=== PATIENT | male | born 1955 | race American Indian/Alaskan Native ===

== ENCOUNTER 2018-10-24 17:11 | Inpatient (IN) | payer SELFPAY ==
--- NOTE | 2018-10-24 23:57 | Event Note ---
Date: 10/24/[address] Sharad weller Orders reviewed
[2018-10-25 05:12] LABS: Basophils # (Auto) 0.1 K/mm3 (0.0-0.1); Basophils % (Auto) 0.7 % (0.0-1.8); Eosinophils # (Auto) 0.1 K/mm3 (0.0-0.4); Eosinophils % (Auto) 1.6 % (0.0-4.3); Hematocrit 43.3 % (35.5-45.6); Hemoglobin 14.3 gm/dl (11.8-15.2); Lymphocytes # (Auto) 3.7 K/mm3 (1.2-5.4); Lymphocytes % (Auto) 44.2 % (13.4-35.0); Mean Corpuscular HGB Conc 33 % (32-34); Mean Corpuscular Volume 96 fl (84-94); Monocytes # (Auto) 0.7 K/mm3 (0.0-0.8); Monocytes % (Auto) 7.9 % (0.0-7.3); Platelet Count 366 K/mm3 (140-440); Red Blood Count 4.49 M/mm3 (3.65-5.03); Red Cell Distribution Width 13.8 % (13.2-15.2)
[2018-10-25 05:32] LABS: BUN/Creatinine Ratio 27; Blood Urea Nitrogen 24 mg/dL (9-20); Hemolysis Index 14
[2018-10-25] MEDS: LOVENOX SUB-Q SCH (08:59)
[2018-10-25] MEDS: HCTZ PO SCH (08:59)
[2018-10-25] MEDS: ASPIRIN PO SCH (08:59)
[2018-10-25] MEDS: HABITROL TD SCH (09:00)
--- NOTE | 2018-10-25 11:16 | History and Physical Report ---
History of Present Illness Date: 10/25/18 Date of admission: 10/24/18 20:10 Chief Complaint: CVA History of present illness: 63 yo male presented to ED on 10/12/2018 after a day of worsening right sided weakness and slurred speech which became acutely worse 1.5 hrs prior to presentation. 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 CTA did not show significant stenosis or occlusion. Hypertension was difficult to control and medications were increased for better control. After he was medically stabilized he was transferred for further rehab. Left hand dominant. Reduced awareness of deficits and slightly impulsive. Cautioned against attempt ing to do things on his own without calling for assistance while he was here. Observed walking in hallway with therapy with RLE laurel wrapped for support and lesvia walker. He still has significant issues with balance, right sided hemiparesis and insight. All available medical records, therapy notes, vitals and labs were reviewed. Past History Past Medical History: hypertension, hyperlipidemia Past Surgical History: No surgical history Social history: Lives alone, smoking (EtOH Use), full code Family history: hypertension Medications and Allergies Allergies Allergy/AdvReac Type Severity Reaction Status Date / Time No Known Allergies Allergy Unverified 10/24/18 17:14 Active Meds: Active Medications Amlodipine Besylate (Norvasc) 10 mg PO QDAY [facility] Aspirin (Aspirin) 325 mg PO QDAY [facility] Last Admin: 10/25/18 08:59 Dose: 325 mg Documented by: Atorvastatin Calcium (Lipitor) 40 mg PO QHS [facility] Enoxaparin Sodium (Lovenox) 40 mg SUB-Q QDAY [facility] Last Admin: 10/25/18 08:59 Dose: 40 mg Documented by: Hydrochlorothiazide (Hctz) 25 mg PO QDAY [facility] Last Admin: 10/25/18 08:59 Dose: 25 mg Documented by: Lisinopril (Zestril) 40 mg PO QDAY [facility] Nicotine (Habitrol) 14 mg TD QDAY [facility] Last Admin: 10/25/18 09:00 Dose: Not Given Documented by: Review of Systems All systems: negative (All systems normal except as noted) Constitutional: fatigue, weakness Ears, nose, mouth and throat: no dysphagia Cardiovascular: no chest pain, no rapid/irregular heart beat, no shortness of breath Respiratory: no cough Gastrointestinal: no nausea, no vomiting, no constipation, no early satiety Musculoskeletal: gait dysfunction Integumentary: no rash, no lesions, no unusual bruising Neurological: weakness, lack of coordination, balance difficulties, gait dysfunction, no aphasia Psychiatric: no irritability Exam - Exam Narrative exam: MUSCULOSKELETAL SPECIALTY EXAM Constitutional: Well developed, well nourished, appropriately groomed, LHD Lymphatic: No appreciable abnormalities palpable in neck EENT: Visual benavides full to confrontation. EOMI. Oropharynx clear. Hearing intact to finger rustle Respiratory: Clear to ascultation bilaterally, no increased work of breathing. Cardiovascular Regular Rate/ Rhythm, no swelling edema or tenderness in all 4 extremities. Pulses palpable in all 4 extremities. All 4 extremities warm. GI : + bowel sounds, soft, NTTP, nondistended INTEGUMENTARY Normal in all 4 extremities. Musuloskeletal BUE and BLE normal without defect, crepitus, sublux, effusion, or TTP. RUE and RLE 3 to 4-/5, ADF/APF 0/5. Decreased aROM, good pROM, normal tone. LUE and LLE 5/5, good ROM with normal tone. NEURO: Slight Right facial droop, otherwise CN 2-12 grossly intact. Sensation intact in all extremities without extinction. Reflexes 3+ on right and 2+ on left at biceps, brachioradialis and patella. Clonus at right ankle. Coordination intact on left, decreased on right. No tremor noted. No aphasia or dysarthria. Naming and repetition intact. POSTURE and GAIT: Slight lean to right, ambulating with lesvia walker, laurel wrap and assistance. Balance reasonable PSYCH: Alert, orientated x3, affect appears normal. Insight appears slightly impaired, with some increased impulsivity. - Constitutional Vitals: Vital Signs - 12hr 10/25/18 10/25/18 10/25/18 00:25 00:27 07:19 Temperature 36.6 C 36.9 C Pulse Rate 71 69 70 Respiratory 20 20 Rate Blood Pressure 117/90 126/78 O2 Sat by Pulse 100 98 93 Oximetry - Labs CBC & Chem 7: 10/25/18 04:35 10/25/18 04:35 Labs: Laboratory Results - last 72 hr 10/25/18 10/25/18 04:35 04:35 WBC 8.4 RBC 4.49 Hgb 14.3 Hct 43.3 MCV 96 H MCH 32 MCHC 33 RDW 13.8 Plt Count 366 Lymph % (Auto) 44.2 H [place] % (Auto) 7.9 H Eos % (Auto) 1.6 Baso % (Auto) 0.7 Lymph # 3.7 [place] # 0.7 Eos # 0.1 Baso # 0.1 Seg Neutrophils % 45.6 Seg Neutrophils # 3.8 Sodium 140 Potassium 4.1 Chloride 103.1 Carbon Dioxide 26 Anion Gap 15 BUN 24 H Creatinine 0.9 Estimated GFR > 60 BUN/Creatinine Ratio 27 Glucose 96 Calcium 9.0 Assessment and Plan Assessment and plan: Patient was assessed and evaluated for Acute Inpatient Rehab Unit. Due to the patients above-mentioned medical complexity, along with decreased functional mobility and self care, this patient continues to require and be appropriate for a comprehensive, multidisciplinary [id number] rehabilitation program. These needs cannot be met in an outpatient or other less intensive setting. The patient would continue to benefit from skilled therapy intervention for at least 3 hours per day, five days a week, with techniques specific to the needs of the patient to improve function, activities of daily living, and reintegration into the community. The patient continues to require: -- OT to improve ROM, self-care, and learn use of adaptive equipment -- PT to improve strength and balance, functional transfers, and ambulation -- MARINE SERVICES TECHNICIAN to evaluate and treat cognitive decline and dysphagia -- 24 hour RN to ensure and prevent skin breakdown, promote progressive independence while ensuring safety, ensure education regarding medications, and incorporation of the rehabilitation at the bedside -- 24 hour [employer] Obie[employer] Developer to coordinate this interdisciplinary program, and to manage/prevent complications as a result of the patients medical comorbidities. -Plan of care by day 4 -Weekly team conferences With such a program, there is a reasonable certainty that the goals individualized for this patient can be achieved within the specified length of stay. I69.353 Right non-dom hemiparesis: Monitor for neuro decline. Continue secondary stroke prevention. Discussed recovery and secondary stroke prevention. Monitor for post-stroke depression and s/s of shoulder-hand syndrome. 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 Z73.6 ADL dysfunction: OT will work on improving ability to perform ADLs (including assistive devices) to increase independence and decrease caregiver burden and improve functional transfers and mobility training. R26.2 Difficulty walking: PT will work on gait training and proper use of assistive devices and advance as appropriate to use of stairs and outside ambulation on uneven surfaces. R26.81 Unsteadiness on feet: PT will work on improving static and dynamic sitting and standing balance as well as proper use of assistive devices to decrease risk of falls. R26.89 Abnormality of gait: PT will work to improve safety and efficiency of gait through neuromotor training and gait training along with instruction on proper use of assistive devices. M62.81 Muscle weakness: PT & OT will work on strengthening exercises to improve functional strength including mixture of closed and open kinetic chain exercises. R53.81 Debility: PT & OT will work on improving overall functional status to improve participation with ADLs, mobility and social involvement. R53.83 Fatigue: PT & OT will work on improving endurance through aerobic exercises and therapeutic activity while monitoring patients tolerance for activity and vital signs as needed. I10 Hypertension:Monitor BP and adjust medications as needed for normotension F17.210 Tobacco Addiction: Continue nicotine patch. Discussed smoking cessation with patient E78.5 Hyperlipidemia: continue statin DVT ppx: on lovenox Pain: Continue physical modalities in therapy and pain medications as needed to achieve functional pain control. Sleep: Monitor and address as needed. Bowel: Monitor and address as needed. Appetite: Monitor and address as needed. Discharge planning: Pending therapy progress and care plan meeting. Will continue discussion with therapy team, SW, patient and family. Restrictions/ Precautions: Falls, aspiration WB status: FWB Functional Hx: ADLs: Independent and working Cognition: Independent Mobility: independent Barriers to Discharge: Decreased mobility and ability to perform self care, right sided weakness, balance deficits, decreased insight Estimated Length of Stay: 7 -10 days Discharge Destination: Home with family POST ADMISSION PHYSICIAN EVALUATION I have examined the patient and find that his functional status, medical condition and appropriateness for IRF admission are essentially unchanged from those described in the preadmission screening. Will monitor for worsening neurological condition, complications due to hypertension and electrolyte abnormalities. Will attempt to avoid occurrence of these issues or treat them if they present themselves.
[2018-10-25] MEDS: NORVASC PO SCH (12:46)
[2018-10-25] MEDS: ZESTRIL PO SCH (12:46)
[2018-10-25] MEDS ORDERED: DULCOLAX PR PRN (13:42)
[2018-10-25] MEDS ORDERED: TYLENOL PO PRN (13:42)
[2018-10-25] MEDS ORDERED: ZOFRAN ODT PO PRN (14:47)
[2018-10-25] MEDS ORDERED: DESYREL PO PRN (14:47)
[2018-10-26] MEDS: ZESTRIL PO SCH (08:36)
[2018-10-26] MEDS: COLACE PO SCH (09:13)
[2018-10-26] MEDS: ASPIRIN PO SCH (09:13)
[2018-10-26] MEDS: LOVENOX SUB-Q SCH (09:14)
[2018-10-26] MEDS: HCTZ PO SCH (09:14)
[2018-10-26] MEDS: HABITROL TD SCH (09:14)
[2018-10-26] MEDS: NORVASC PO SCH (12:35)
[2018-10-27] MEDS: HABITROL TD SCH (09:48)
[2018-10-27] MEDS: NORVASC PO SCH (09:52)
[2018-10-27] MEDS: HCTZ PO SCH (09:53)
[2018-10-27] MEDS: ZESTRIL PO SCH (09:53)
[2018-10-27] MEDS: ASPIRIN PO SCH (09:53)
[2018-10-27] MEDS: LOVENOX SUB-Q SCH (09:54)
[2018-10-27] MEDS: COLACE PO SCH (09:57)
--- NOTE | 2018-10-27 23:16 | IRU Plan of Care ---
Interdisciplinary Plan of Care - IPOC IRU INTERDISCIPLINARY PLAN: [facility] Inpatient Rehab Unit Plan of Care IRU Interdisciplinary Care Plan Start: 10/24/18 20:58 Freq: Admission then PRN Status: Active Protocol: Document 10/27/18 09:11 TH (Rec: 10/27/18 09:19 TH [id number]) Interdisciplinary Problem List Interdisciplinary Problem List Interdisciplinary Problem List Impaired Eating/Swallowing Query Text:Answers will Trigger Problems Impaired Bathing/Grooming and Outcomes on Worklist. Impaired Dressing Impaired Mobility Impaired Transfers Impaired Toileting Impaired Problem Solving Impaired Memory Knowledge Deficits Discharge Concerns Impaired Safety Medications Education Impaired Cardiovascular System IRU Interdisciplinary Care Plan Therapy Services Therapy Services Will Include: Physical Therapy Query Text:Patient will be seen for a Occupational Therapy minimum of 3 hours of daily therapy 5 Speech Therapy out of 7 days a week. Therapy intensity may be adjusted within a 7 consecutive day period to effectively serve the individual needs of the patient. Treatment Frequency/Intensity/Duration Treatment Frequency 5 days per week Treatment Intensity 3 hours per day Treatment Duration 7-10 days Problem Area: Eating/Swallowing Eating/Swallowing Outcomes Eating/Swallowing Interventions Problem Area: Bathing/Grooming Bathing/Grooming Outcomes Improve [place] w/ Grooming Improve [place] w/ Bathing Bathing/Grooming Interventions ADL Training Use of Assistive Devices Therapeutic Exercise Therapeutic Activity Neuromuscular Re-Education Balance Work Activity Tolerance Work Patient/Caregiver Education Problem Area: Dressing Dressing Outcomes Improve [place] w/ UB Dressing Improve [place] w/ LB Dressing Dressing Interventions ADL Training Use of Assistive Devices Neuromuscular Re-Education Therapeutic Exercise Balance Work Modalities Patient/Caregiver Education Problem Area: Mobility Mobility Outcomes Improve [place] w/ Bed Mobility Improve [place] w/ Ambulation Improve [place] w/ Stairs /Curb Improve [place] w/ Wheelchair Mobility Interventions Therapeutic Exercise Neuromuscular Re-Ed. Activity Tolerance Work Use of Assistive Devices Patient/Caregiver Education Bed Mobility Work Gait Training W/C Mobility Work Problem Area: Transfers Transfers Outcomes Improve [place] w/ Bed Transfers Improve [place] w/ Toilet Transfers Improve [place] w/ Tub/ Shower Transfers Improve [place] w/ Car Transfers Transfers Interventions Transfer Training Therapeutic Exercise Neuromuscular Re-Education Activity Tolerance Work Use of Assistive Devices Patient/Caregiver Education Problem Area: Bowel/Bladder Managment Bowel/Bladder Outcomes Bowel/Bladder Interventions Problem Area: Toileting Toileting Outcomes Improve [place] w/ Toileting Toileting Interventions ADL Training Balance Work Use of Assistive Devices Patient/Caregiver Education Problem Area: Nutrition Nutrition Outcomes Nutrition Interventions Problem Area: Comprehension Comprehension Outcomes Comprehension Interventions Problem Area: Expression Expression Outcomes Expression Interventions Problem Area: Problem Solving Problem Solving Outcomes Improve Problem Solving Problem Solving Interventions Cognitive Training Safety Education Patient/Caregiver Education Problem Area: Memory Memory Outcomes Memory Interventions Problem Area: Pain Management Pain Management Outcomes Pain Management Interventions Problem Area: Knowledge Deficits Knowledge Deficits Outcomes Verbalize Understanding of S/S of Stroke Knowledge Deficits Interventions Medication Use Education Problem Area: Skin/Tissue Integrity Skin/Tissue Integrity Outcomes Skin/Tissue Integrity Interventions Problem Area: Social Interaction Social Interaction Outcomes Social Interaction Interventions Problem Area: Adjustment to Disability Adjustment to Disability Outcomes Adjustment to Disability Interventions Problem Area: Discharge Concerns Discharge Concerns Outcomes Discharge w/ Necessary Equipment Have Home Health/Outpatient Services Discharge Concerns Interventions Discharge Planning Family/Caregiver Conference Family/Caregiver Training Problem Area: Community Reintegration Community Reintegration Outcomes Community Reintegration Interventions Problem Area: Home Management Home Management Outcomes Improve [place] w/ Home Management Home Management Interventions Clothing Care Activity Tolerance Work Patient/Caregiver Education Problem Area: Safety Safety Outcomes Provide Safe Environment Perform Selfcare Safely Demonstrate Good Safety w/ Transfers/Mobility Safety Interventions Identify Fall Risk [place] Pt. to Environment Reduce Environmental Hazards Implement Mechanical Devices, i.e. Chair Alarm (Post Fall Update) Re-Educate Patient/Caregiver for Safety (Post Fall Update) Problem Area: Medication Education Medication Education Outcomes Patient/Caregiver will Verbalize Understanding of Medications Medication Education Interventions Explain Administration/Side Effects/Interactions Problem Area: Diabetes Education Diabetes Education Outcomes Diabetes Education Interventions Problem Area: Oxygenation Oxygenation Outcomes Oxygenation Interventions Problem Area: Cardiovascular Cardiovascular Outcomes Cardiovascular Interventions Physician Only Medical Prognosis and Rehabilitation Potential (Completed by Physician) Good prognosis. Will continue to monitor and treat for CVA related issues including hemiparesis, ADL dysfunction, and mobility dysfunction. Will monitor and adjust medications as needed for treatment of medical conditions and look to reduce impact of those conditions on participation in rehabilitation. Making good progress with therapy despite minor setback today. This plan of care has been developed based on the findings from the pre- admission assessment, post admission physician evaluation, information gathered from the assessments from all therapy disciplines and other pertinent clinicians. The plan of care has been reviewed and discussed in collaboration with the interdisciplinary team. The plan of care will be reviewed and updated at least weekly.
[2018-10-28 07:26] LABS: BUN/Creatinine Ratio 23; Blood Urea Nitrogen 23 mg/dL (9-20); Calcium 9.1 mg/dL (8.4-10.2); Hemolysis Index 5
[2018-10-28] MEDS: NORVASC PO SCH (09:00)
[2018-10-28] MEDS: ZESTRIL PO SCH ×2 (09:00→22:50)
[2018-10-28] MEDS: HCTZ PO SCH (09:00)
[2018-10-28] MEDS: HABITROL TD SCH (09:02)
[2018-10-28] MEDS ORDERED: ZESTRIL PO SCH (09:59)
--- NOTE | 2018-10-28 10:00 | Progress Note ---
Subjective Date of service: 10/28/18 Principal diagnosis: CVA Interval history: 63 yo male with CVA (right sided weakness) was found to have Left Basal Ganglia infarct on MRI brain. CTA did not show significant stenosis or occlusion. Left hand dominant. Reduced awareness of deficits and slightly impulsive. CODE MET called yesterday at end of therapy - patient fainted. After placing pt in supine position and elevating legs he recovered quickly and had no further issues. Likely due to lower BP, remainder of vitals and POC were normal. He also reports this happening at OSH after BP meds were started. Have adjusted medications and will monitor for further problems - target SBP 120-130. Cautioned pt to alert staff as soon as he starts feeling like he may faint. Having loose stools - stopped colace. Refusing nicotine patch - d/c'd after discussing cessation. Still impulsive with some decreased awareness of deficits. All available medical records, therapy notes, vitals and labs were reviewed. Objective - Exam Narrative Exam: MUSCULOSKELETAL SPECIALTY EXAM Constitutional: Well developed, well nourished, appropriately groomed, LHD EENT: EOMI. Hearing intact to finger rustle Respiratory: Clear to ascultation bilaterally, no increased work of breathing. Cardiovascular Regular Rate/ Rhythm, no swelling edema or tenderness in all 4 extremities. All 4 extremities warm. GI : + bowel sounds, soft, NTTP, nondistended INTEGUMENTARY Normal in all 4 extremities. Musuloskeletal BUE and BLE normal without defect, crepitus, sublux, effusion, or TTP. RUE and RLE 3 to 4-/5, ADF/APF 0/5. Decreased aROM, good pROM, normal tone. LUE and LLE 5/5, good ROM with normal tone. NEURO: Slight Right facial droop, otherwise CN 2-12 grossly intact. Sensation intact in all extremities without extinction. No tremor noted. No aphasia or dysarthria. Naming and repetition intact. POSTURE and GAIT: Slight lean to right, ambulating with lesvia walker, laurel wrap and assistance. Balance reasonable PSYCH: Alert, orientated x3, affect appears normal. Insight appears slightly impaired, with some increased impulsivity. - Constitutional Vitals: Vital Signs - 12hr 10/27/18 10/28/18 10/28/18 23:52 04:07 08:58 Temperature 36.6 C 36.9 C 36.8 C Pulse Rate 71 70 89 Respiratory 17 17 18 Rate Blood Pressure 105/77 115/80 Blood Pressure 116/79 [Left] O2 Sat by Pulse 98 98 97 Oximetry - Allied health notes Allied health notes reviewed: nursing, PT, OT FIMS assessment as documented by PT/OT/ST: Grooming Patient cleans teeth/dentures: Yes Patient bobo/brushes hair: Yes Patient washes, rinses and Yes dries face: Patient washes, rinses and Yes dries hands: Patient performs (no make-up/ 4/4 (100%) shaving): Grooming FIM Score 5. Supervision ([place] applies toothpaste or opens containers.) Toileting Toileting Device Commode over Toilet Patient able to: Adjust clothes before,Clean self,Adjust clothes after Patient able to perform: 1/3 (33%) Toileting FIM Score 2. Maximal Assistance (Patient = 25% or more) Social interaction/Memory/Problem solving Social Interaction FIM Score 7. Complete [place] (Interacts appropriately. Controls temper.) Memory FIM Score 6. Modified [place](Mild difficulty remembering people/routines.) Problem Solving FIM Score 7. Complete [place] (Solves complex problems. Self corrects.) Transfers Mode of Locomotion: Wheelchair Bed/Chair/Wheelchair Transfers 4. Minimal Assistance (Patient = 75% or more. FIM Score Needs touching.) Toilet Transfers FIM Score 4. Minimal Assistance (Patient = 75% or more. Needs touching.) Patient transferred to: Shower Shower Transfers FIM Score 4. Minimal Assistance (Patient = 75% or more. Needs touching.) Locomotion- Stairs Device used on Stairs Handrail/s Number of Stairs Ascended/ 4 Descended Patient used handrail/support: Yes Stairs FIM Score 2. Maximal Assistance (Patient = 25% or more, 4- 6 stairs.) Locomotion- walk/wheelchair Most Frequent Mode of Wheelchair Locomotion: Ambulation Distance 170 Walking FIM Score 4. Minimal Assistance (Patient = 75% or more. Minimum of 150 ft.) Wheelchair Propulsion Distance 300 Wheelchair FIM Score 5. Supervision (Minimum 150 ft. supv./cues or 50 ft. independently.) Eating Eating FIM Score 5. Supervision/Set-Up (Needs help w/ containers, cutting meat, etc.) Dressing-Upper body Patient retrieves clothing No items: Patient applies/removes UE n/a prosthesis or orthosis: Upper Body Dressing FIM Score 4. Minimal Assistance (Patient = 75% or more. Needs touching.) Dressing-lower body Patient retrieves clothing No items: Patient applies/removes LE n/a prosthesis or orthosis: Lower Body Dressing FIM Score 4. Minimal Assistance (Patient = 75% or more. Needs touching.) - Labs CBC & Chem 7: 10/25/18 04:35 10/28/18 06:44 Labs: Laboratory Results - last 72 hr 10/27/18 10/28/18 11:25 06:44 Sodium 139 Potassium 4.0 Chloride 100.4 Carbon Dioxide 24 Anion Gap 19 BUN 23 H Creatinine 1.0 Estimated GFR > 60 BUN/Creatinine Ratio 23 Glucose 113 H POC Glucose 103 Calcium 9.1 Assessment and Plan I69.353 Right non-dom hemiparesis: Monitor for neuro decline. Continue secondary stroke prevention. Discussed recovery and secondary stroke prevention. [place] r for post-stroke depression and s/s of shoulder-hand syndrome. 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 OT and PT will continue to address mild symptoms and impulsivity. Z73.6 ADL dysfunction: OT will work on improving ability to perform ADLs (including assistive devices) to increase independence and decrease caregiver burden and improve functional transfers and mobility training. R26.2 Difficulty walking: PT will work on gait training and proper use of assistive devices and advance as appropriate to use of stairs and outside ambulation on uneven surfaces. R26.81 Unsteadiness on feet: PT will work on improving static and dynamic sitting and standing balance as well as proper use of assistive devices to decrease risk of falls. R26.89 Abnormality of gait: PT will work to improve safety and efficiency of gait through neuromotor training and gait training along with instruction on proper use of assistive devices. M62.81 Muscle weakness: PT & OT will work on strengthening exercises to improve functional strength including mixture of closed and open kinetic chain exercises. R53.81 Debility: PT & OT will work on improving overall functional status to improve participation with ADLs, mobility and social involvement. R53.83 Fatigue: PT & OT will work on improving endurance through aerobic exercises and therapeutic activity while monitoring patients tolerance for activity and vital signs as needed. I10 Hypertension:Reduce HCTZ and lisinopril due to hypotensive episode. Monitor BP and adjust medications as needed for normotension F17.210 Tobacco Addiction: D/C nicotine patch - patient is refusing. Discussed smoking cessation with patient E78.5 Hyperlipidemia: continue statin DVT ppx: on lovenox Pain: Continue physical modalities in therapy and pain medications as needed to achieve functional pain control. Sleep: Monitor and address as needed. Bowel: Monitor and address as needed. Appetite: Monitor and address as needed. Discharge planning: Pending therapy progress and care plan meeting. Will continue discussion with therapy team, SW, patient and family. Restrictions/ Precautions: Falls, aspiration WB status: FWB Functional Hx: ADLs: Independent and working Cognition: Independent Mobility: independent Barriers to Discharge: Decreased mobility and ability to perform self care, right sided weakness, balance deficits, decreased insight Estimated Length of Stay: 7 -10 days Discharge Destination: Home with family
[2018-10-28] MEDS: ASPIRIN PO SCH (10:43)
[2018-10-28] MEDS: LOVENOX SUB-Q SCH (10:44)
[2018-10-28] MEDS ORDERED: COLACE PO PRN (11:20)
[2018-10-28] MEDS: COLACE PO SCH (22:50)
[2018-10-29] MEDS: LOVENOX SUB-Q SCH (08:25)
[2018-10-29] MEDS: ASPIRIN PO SCH (08:25)
[2018-10-29] MEDS: HCTZ PO SCH (08:29)
[2018-10-29] MEDS: ZESTRIL PO SCH (08:33)
[2018-10-29] MEDS: NORVASC PO SCH (08:33)
[2018-10-30] MEDS: ASPIRIN PO SCH (08:23)
[2018-10-30] MEDS: NORVASC PO SCH (08:23)
[2018-10-30] MEDS: ZESTRIL PO SCH (08:23)
[2018-10-30] MEDS: LOVENOX SUB-Q SCH (08:24)
[2018-10-30] MEDS: HCTZ PO SCH (08:24)
--- NOTE | 2018-10-30 09:30 | Progress Note ---
Subjective Date of service: 10/30/18 Principal diagnosis: CVA Interval history: 63 yo male with CVA (right sided weakness) was found to have Left Basal Ganglia infarct on MRI brain. CTA did not show significant stenosis or occlusion. Left hand dominant. Reduced awareness of deficits and slightly impulsive. No further issues with feeling faint. Antihypertensives have been held with reason given as patient refused - patient denies this. Have adjusted medications and will monitor for further problems - target SBP 120-130s, reinforced with patient that we need to see how he reacts to current dosage to be able to safely send him home on an appropriate dose. Cautioned pt to alert staff as soon as he starts feeling like he may faint. +BM. Still impulsive with some decreased awareness of deficits. Will recheck BMP Saturday to monitor BUN and electrolytes due to medications. Discussed during Team Conference, doing well overall. Will look to d/c late next week if all continues to go well. Will need AFO for RLE. All available medical records, therapy notes, vitals and labs were reviewed. Objective - Exam Narrative Exam: MUSCULOSKELETAL SPECIALTY EXAM Constitutional: Well developed, well nourished, appropriately groomed, LHD EENT: EOMI. Hearing intact to finger rustle Respiratory: Clear to ascultation bilaterally, no increased work of breathing. Cardiovascular Regular Rate/ Rhythm, no swelling edema or tenderness in all 4 extremities. All 4 extremities warm. GI : + bowel sounds, soft, NTTP, nondistended INTEGUMENTARY Normal in all 4 extremities. Musuloskeletal BUE and BLE normal without defect, crepitus, sublux, effusion, or TTP. RUE and RLE 3 to 4-/5, ADF 0/5, APF 3-/5. Decreased aROM, good pROM, normal tone. LUE and LLE 5/5, good ROM with normal tone. NEURO: Slight Right facial droop, otherwise CN 2-12 grossly intact. Sensation intact in all extremities without extinction. No tremor noted. No aphasia or dysarthria. Naming and repetition intact. POSTURE and GAIT: Slight lean to right, ambulating with lesvia walker, laurel wrap and assistance. Balance reasonable PSYCH: Alert, orientated x3, affect appears normal. Insight appears slightly impaired, with some increased impulsivity. - Constitutional Vitals: Vital Signs - 12hr 10/29/18 10/30/18 10/30/18 22:00 05:18 06:05 Temperature 37.3 C 36.8 C Pulse Rate 83 67 Respiratory 17 16 Rate Blood Pressure Blood Pressure 109/58 134/91 [Left] O2 Sat by Pulse 97 94 96 Oximetry 10/30/18 07:32 Temperature 36.6 C Pulse Rate 65 Respiratory 18 Rate Blood Pressure 135/82 Blood Pressure [Left] O2 Sat by Pulse 97 Oximetry - Allied health notes FIMS assessment as documented by PT/OT/ST: Grooming Patient cleans teeth/dentures: Yes Patient bobo/brushes hair: Yes Patient washes, rinses and Yes dries face: Patient washes, rinses and Yes dries hands: Patient performs (no make-up/ 01/22 (100%) shaving): Grooming FIM Score 5. Supervision ([place] applies toothpaste or opens containers.) Toileting Toileting Device Commode over Toilet Patient able to: Adjust clothes before,Clean self,Adjust clothes after Patient able to perform: 1/3 (33%) Toileting FIM Score 2. Maximal Assistance (Patient = 25% or more) Social interaction/Memory/Problem solving Social Interaction FIM Score 7. Complete [place] (Interacts appropriately. Controls temper.) Memory FIM Score 6. Modified [place](Mild difficulty remembering people/routines.) Problem Solving FIM Score 7. Complete [place] (Solves complex problems. Self corrects.) Transfers Mode of Locomotion: Wheelchair Bed/Chair/Wheelchair Transfers 4. Minimal Assistance (Patient = 75% or more. FIM Score Needs touching.) Toilet Transfers FIM Score 4. Minimal Assistance (Patient = 75% or more. Needs touching.) Patient transferred to: Shower Shower Transfers FIM Score 4. Minimal Assistance (Patient = 75% or more. Needs touching.) Locomotion- Stairs Device used on Stairs Handrail/s Number of Stairs Ascended/ 12 Descended Patient used handrail/support: Yes Stairs FIM Score 4. Minimal Assistance (Patient = 75% or more, touching. 12-14 stairs.) Locomotion- walk/wheelchair Most Frequent Mode of Wheelchair Locomotion: Ambulation Distance 350 Walking FIM Score 4. Minimal Assistance (Patient = 75% or more. Minimum of 150 ft.) Wheelchair Propulsion Distance 300 Wheelchair FIM Score 5. Supervision (Minimum 150 ft. supv./cues or 50 ft. independently.) Eating Eating FIM Score 5. Supervision/Set-Up (Needs help w/ con tainers, cutting meat, etc.) Dressing-Upper body Patient retrieves clothing No items: Patient applies/removes UE n/a prosthesis or orthosis: Upper Body Dressing FIM Score 4. Minimal Assistance (Patient = 75% or more. Needs touching.) Dressing-lower body Patient retrieves clothing No items: Patient applies/removes LE n/a prosthesis or orthosis: Lower Body Dressing FIM Score 4. Minimal Assistance (Patient = 75% or more. Needs touching.) - Labs CBC & Chem 7: 10/25/18 04:35 10/28/18 06:44 Labs: Laboratory Results - last 72 hr 10/27/18 10/28/18 11:25 06:44 Sodium 139 Potassium 4.0 Chloride 100.4 Carbon Dioxide 24 Anion Gap 19 BUN 23 H Creatinine 1.0 Estimated GFR > 60 BUN/Creatinine Ratio 23 Glucose 113 H POC Glucose 103 Calcium 9.1 Assessment and Plan I69.353 Right non-dom hemiparesis: Monitor for neuro decline. Continue secondary stroke prevention. Discussed recovery and secondary stroke prevention. Monitor for post-stroke depression and s/s of shoulder-hand syndrome. 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 OT and PT will continue to address mild symptoms and impulsivity. Z73.6 ADL dysfunction: OT will work on improving ability to perform ADLs (including assistive devices) to increase independence and decrease caregiver burden and improve functional transfers and mobility training. R26.2 Difficulty walking: PT will work on gait training and proper use of assistive devices and advance as appropriate to use of stairs and outside ambulation on uneven surfaces. R26.81 Unsteadiness on feet: PT will work on improving static and dynamic sitting and standing balance as well as proper use of assistive devices to decrease risk of falls. R26.89 Abnormality of gait: PT will work to improve safety and efficiency of gait through neuromotor training and gait training along with instruction on proper use of assistive devices. AFO for RLE M62.81 Muscle weakness: PT & OT will work on strengthening exercises to improve functional strength including mixture of closed and open kinetic chain exercises. R53.81 Debility: PT & OT will work on improving overall functional status to imp rove participation with ADLs, mobility and social involvement. R53.83 Fatigue: PT & OT will work on improving endurance through aerobic exercises and therapeutic activity while monitoring patients tolerance for activity and vital signs as needed. I10 Hypertension:Meds held yesterday - given today, continue to monitor for need to adjust. Will discuss with nursing. Monitor BP and adjust medications as needed for normotension F17.210 Tobacco Addiction: D/C nicotine patch - patient is refusing. Discussed smoking cessation with patient E78.5 Hyperlipidemia: continue statin DVT ppx: on lovenox Pain: Continue physical modalities in therapy and pain medications as needed to achieve functional pain control. Sleep: Monitor and address as needed. Bowel: Monitor and address as needed. Appetite: Monitor and address as needed. Discharge planning: Pending therapy progress and care plan meeting. Will continue discussion with therapy team, SW, patient and family. Restrictions/ Precautions: Falls, aspiration WB status: FWB Functional Hx: ADLs: Independent and working Cognition: Independent Mobility: independent Barriers to Discharge: Decreased mobility and ability to perform self care, right sided weakness, balance deficits, decreased insight Estimated Length of Stay: 7 -10 days Discharge Destination: Home with family
[2018-10-31] MEDS: ZESTRIL PO SCH (08:55)
[2018-10-31] MEDS: NORVASC PO SCH (08:59)
[2018-10-31] MEDS: ASPIRIN PO SCH (08:59)
[2018-10-31] MEDS: HCTZ PO SCH (08:59)
[2018-10-31] MEDS: LOVENOX SUB-Q SCH (09:00)
--- NOTE | 2018-11-01 08:11 | Progress Note ---
Subjective Date of service: 11/01/18 Principal diagnosis: CVA Interval history: 63 yo male with CVA (right sided weakness) was found to have Left Basal Ganglia infarct on MRI brain. CTA did not show significant stenosis or occlusion. Left hand dominant. Reduced awareness of deficits and slightly impulsive. Participating with therapy and making progress. No further issues with feeling faint. BP creeping upwards, will increase slightly on lisinopril - target SBP 120-130s, reinforced with patient that we need to see how he reacts to current dosage to be able to safely send him home on an appropriate dose. Cautioned pt to alert staff as soon as he starts feeling like he may faint. +BM. Still impulsive with some decreased awareness of deficits. Improving daily with ability to perform gross motor movement and strength, fine motor control slower. Will look to d/c late next week if all continues to go well. All available medical records, therapy notes, vitals and labs were reviewed. Objective - Exam Narrative Exam: MUSCULOSKELETAL SPECIALTY EXAM Constitutional: Well developed, well nourished, appropriately groomed, LHD EENT: EOMI. Hearing intact to finger rustle Respiratory: Clear to ascultation bilaterally, no increased work of breathing. Cardiovascular Regular Rate/ Rhythm, no swelling edema or tenderness in all 4 extremities. All 4 extremities warm. GI : + bowel sounds, soft, NTTP, nondistended INTEGUMENTARY Normal in all 4 extremities. Musuloskeletal BUE and BLE normal without defect, crepitus, sublux, effusion, or TTP. RUE and RLE 3 to 4-/5, ADF 2/5, APF 3-/5. Decreased aROM, good pROM, normal tone. R side fine motor control slow to improve but better. LUE and LLE 5/5, good ROM with normal tone. NEURO: Slight Right facial droop, otherwise CN 2-12 grossly intact. Sensation intact in all extremities without extinction. No tremor noted. No aphasia or dysarthria. Naming and repetition intact. POSTURE and GAIT: Slight lean to right, ambulating with lesvia walker and assistance. Balance reasonable PSYCH: Alert, orientated x3, affect appears normal. Insight appears slightly impaired, with some increased impulsivity. - Constitutional Vitals: Vital Signs - 12hr 10/31/18 11/01/18 11/01/18 22:00 00:27 03:49 Temperature 36.4 C 36.5 C Pulse Rate 69 69 Pulse Rate [ 78 Left Radial] Respiratory 17 17 17 Rate Blood Pressure 140/84 130/89 O2 Sat by Pulse 98 100 99 Oximetry - Allied health notes FIMS assessment as documented by PT/OT/ST: Grooming Patient cleans teeth/dentures: Yes Patient bobo/brushes hair: Yes Patient washes, rinses and Yes dries face: Patient washes, rinses and Yes dries hands: Patient performs (no make-up/ / (100%) shaving): Grooming FIM Score 5. Supervision ([place] applies toothpaste or opens containers.) Toileting Toileting Device Commode over Toilet Patient able to: Adjust clothes before,Clean self,Adjust clothes after Patient able to perform: 1/3 (33%) Toileting FIM Score 5. Supv./Set-Up (Needs stand-by, set-up, applying prosth/orth.) Social interaction/Memory/Problem solving Social Interaction FIM Score 7. Complete [place] (Interacts appropriately. Controls temper.) Memory FIM Score 7. Complete [place] (Remembers people and routines.) Problem Solving FIM Score 7. Complete [place] (Solves complex problems. Self corrects.) Transfers Mode of Locomotion: Wheelchair Bed/Chair/Wheelchair Transfers 5. Supervision (Needs supv. or set-up for FIM Score sliding board, foot rests.) Toilet Transfers FIM Score 5. Supervision (Needs supervision or cueing.) Patient transferred to: Shower Tub Transfers FIM Score 5. Supervision (Needs supv. or set-up with device.) Shower Transfers FIM Score 5. Supervision (Needs supv. or set-up with device.) Locomotion- Stairs Device used on Stairs Handrail/s Number of Stairs Ascended/ 22 Descended Patient used handrail/support: Yes Stairs FIM Score 4. Minimal Assistance (Patient = 75% or more, touching. 12-14 stairs.) Locomotion- walk/wheelchair Most Frequent Mode of Wheelchair Locomotion: Ambulation Distance 350 Walking FIM Score 4. Minimal Assistance (Patient = 75% or more. Minimum of 150 ft.) Wheelchair Propulsion Distance 355 Wheelchair FIM Score 6. Modified [place] (Wheels a minimum of 150 ft.) Eating Eating FIM Score 6. Modified [place] (Special consistency or uses device.) Dressing-Upper body Patient retrieves clothing No items: Patient applies/removes UE n/a prosthesis or orthosis: Upper Body Dressing FIM Score 5. Supv./Set-Up ([place] sets out clothes or applies pros./orth.) Dressing-lower body Patient retrieves clothing No items: Patient applies/removes LE n/a prosthesis or orthosis: Lower Body Dressing FIM Score 5. Supv./Set-Up ([place] sets out clothes or applies pros./orth.) - Labs CBC & Chem 7: 10/25/18 04:35 11/01/18 08:11 Assessment and Plan I69.353 Right non-dom hemiparesis: Monitor for neuro decline. Continue secondary stroke prevention. Discussed recovery and secondary stroke prevention. Monitor for post-stroke depression and s/s of shoulder-hand syndrome. 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 OT and PT w ill continue to address mild symptoms and impulsivity. Z73.6 ADL dysfunction: OT will work on improving ability to perform ADLs (including assistive devices) to increase independence and decrease caregiver burden and improve functional transfers and mobility training. R26.2 Difficulty walking: PT will work on gait training and proper use of assistive devices and advance as appropriate to use of stairs and outside ambulation on uneven surfaces. R26.81 Unsteadiness on feet: PT will work on improving static and dynamic sitting and standing balance as well as proper use of assistive devices to d ecrease risk of falls. R26.89 Abnormality of gait: PT will work to improve safety and efficiency of gait through neuromotor training and gait training along with instruction on proper use of assistive devices. AFO for RLE M62.81 Muscle weakness: PT & OT will work on strengthening exercises to improve functional strength including mixture of closed and open kinetic chain exercises. R53.81 Debility: PT & OT will work on improving overall functional status to improve participation with ADLs, mobility and social involvement. R53.83 Fatigue: PT & OT will work on improving endurance through aerobic exercises and therapeutic activity while monitoring patients tolerance for activity and vital signs as needed. I10 Hypertension:Meds held yesterday - given today, continue to monitor for need to adjust. Will discuss with nursing. Monitor BP and adjust medications as needed for normotension F17.210 Tobacco Addiction: D/C nicotine patch - patient is refusing. Discussed smoking cessation with patient E78.5 Hyperlipidemia: continue statin DVT ppx: on lovenox Pain: Continue physical modalities in therapy and pain medications as needed to achieve functional pain control. Sleep: Monitor and address as needed. Bowel: Monitor and address as needed. Appetite: Monitor and address as needed. Discharge planning: Pending therapy progress and care plan meeting. Will continue discussion with therapy team, SW, patient and family. Restrictions/ Precautions: Falls, aspiration WB status: FWB Functional Hx: ADLs: Independent and working Cognition: Independent Mobility: independent Barriers to Discharge: Decreased mobility and ability to perform self care, right sided weakness, balance deficits, decreased insight Estimated Length of Stay: 7 -10 days Discharge Destination: Home with family
[2018-11-01] MEDS: HCTZ PO SCH (08:40)
[2018-11-01] MEDS: NORVASC PO SCH (08:40)
[2018-11-01] MEDS: ASPIRIN PO SCH (08:41)
[2018-11-01] MEDS: ZESTRIL PO SCH (08:41)
[2018-11-01] MEDS: LOVENOX SUB-Q SCH (08:41)
[2018-11-01 08:43] LABS: BUN/Creatinine Ratio 18; Blood Urea Nitrogen 16 mg/dL (9-20); Calcium 9.2 mg/dL (8.4-10.2); Hemolysis Index 15
[2018-11-01] MEDS ORDERED: ZESTRIL PO SCH (11:34)
[2018-11-01] MEDS ORDERED: ZESTRIL PO ONE (12:00)
[2018-11-02] MEDS: ASPIRIN PO SCH (09:16)
[2018-11-02] MEDS: ZESTRIL PO SCH (09:16)
[2018-11-02] MEDS: HCTZ PO SCH (09:17)
[2018-11-02] MEDS: LOVENOX SUB-Q SCH (09:17)
[2018-11-02] MEDS: NORVASC PO SCH (09:21)
[2018-11-03] MEDS ORDERED: NORVASC PO SCH (08:00)
[2018-11-03] MEDS: HCTZ PO SCH (08:40)
[2018-11-03] MEDS: ASPIRIN PO SCH (08:40)
[2018-11-03] MEDS: ZESTRIL PO SCH (08:40)
[2018-11-03] MEDS: LOVENOX SUB-Q SCH (09:07)
[2018-11-04] MEDS ORDERED: ZESTRIL PO SCH ×2 (07:18→10:00)
[2018-11-04] MEDS: LOVENOX SUB-Q SCH (09:00)
[2018-11-04] MEDS: ASPIRIN PO SCH (09:00)
--- NOTE | 2018-11-04 10:24 | Progress Note ---
Subjective Date of service: 11/04/18 Principal diagnosis: CVA Interval history: 63 yo male with CVA (right sided weakness) was found to have Left Basal Ganglia infarct on MRI brain. CTA did not show significant stenosis or occlusion. Left hand dominant. Reduced awareness of deficits and slightly impulsive. Participating with therapy and making progress. No further issues with feeling faint. Various antihypertensives are being held. Have stopped all and changed to lisinopril 10mg. Asked nursing to not hold without first calling me on my cell. - target SBP 120-130s. +BM. Still impulsive with some decreased awareness of deficits. Improving daily with ability to perform gross motor movement and strength, fine motor control slower. Discussed in team conference. D/C . All available medical records, therapy notes, vitals and labs were reviewed. Objective - Exam Narrative Exam: MUSCULOSKELETAL SPECIALTY EXAM Constitutional: Well developed, well nourished, appropriately groomed, LHD EENT: EOMI. Hearing intact to finger rustle Respiratory: Clear to ascultation bilaterally, no increased work of breathing. Cardiovascular Regular Rate/ Rhythm, no swelling edema or tenderness in all 4 extremities. All 4 extremities warm. GI : + bowel sounds, soft, NTTP, nondistended INTEGUMENTARY Normal in all 4 extremities. Musuloskeletal BUE and BLE normal without defect, crepitus, sublux, effusion, or TTP. RUE and RLE 3 to 4-/5, ADF 2/5, APF 3-/5. Decreased aROM, good pROM, normal tone . R side fine motor control slow to improve but better. LUE and LLE 5/5, good ROM with normal tone. NEURO: Slight Right facial droop, otherwise CN 2-12 grossly intact. Sensation intact in all extremities. No tremor noted. No aphasia or dysarthria. POSTURE and GAIT: Slight lean to right, ambulating with lesvia walker and assistance. Balance reasonable PSYCH: Alert, orientated x3, affect appears normal. Insight appears slightly impaired, with some increased impulsivity. - Constitutional Vitals: Vital Signs - 12hr 11/04/18 07:31 Temperature 36.7 C Pulse Rate 72 Respiratory 18 Rate Blood Pressure 121/83 O2 Sat by Pulse 96 Oximetry - Allied health notes Allied health notes reviewed: nursing, PT, OT FIMS assessment as documented by PT/OT/ST: Grooming Patient cleans teeth/dentures: Yes Patient bobo/brushes hair: Yes Patient washes, rinses and Yes dries face: Patient washes, rinses and Yes dries hands: Patient performs (no make-up/ / (100%) shaving): Grooming FIM Score 5. Supervision ([place] applies toothpaste or opens containers.) Toileting Toileting Device Commode over Toilet Patient able to: Adjust clothes before,Clean self,Adjust clothes after Patient able to perform: 1/3 (33%) Toileting FIM Score 5. Supv./Set-Up (Needs stand-by, set-up, applying prosth/orth.) Social interaction/Memory/Problem solving Social Interaction FIM Score 7. Complete [place] (Interacts appropriately. Controls temper.) Memory FIM Score 7. Complete [place] (Remembers people and routines.) Problem Solving FIM Score 7. Complete [place] (Solves complex problems. Self corrects.) Transfers Mode of Locomotion: Wheelchair Bed/Chair/Wheelchair Transfers 5. Supervision (Needs supv. or set-up for FIM Score sliding board, foot rests.) Toilet Transfers FIM Score 5. Supervision (Needs supervision or cueing.) Patient transferred to: Shower Tub Transfers FIM Score 5. Supervision (Needs supv. or set-up with device.) Shower Transfers FIM Score 5. Supervision (Needs supv. or set-up with device.) Locomotion- Stairs Device used on Stairs Handrail/s Number of Stairs Ascended/ 22 Descended Patient used handrail/support: Yes Stairs FIM Score 4. Minimal Assistance (Patient = 75% or more, touching. 12-14 stairs.) Locomotion- walk/wheelchair Most Frequent Mode of Wheelchair Locomotion: Ambulation Distance 350 Walking FIM Score 4. Minimal Assistance (Patient = 75% or more. Minimum of 150 ft.) Wheelchair Propulsion Distance 355 Wheelchair FIM Score 6. Modified [place] (Wheels a minimum of 150 ft.) Eating Eating FIM Score 6. Modified [place] (Special consistency or uses device.) Dressing-Upper body Patient retrieves clothing No items: Patient applies/removes UE n/a prosthesis or orthosis: Upper Body Dressing FIM Score 5. Supv./Set-Up ([place] sets out clothes or applies pros./orth.) Dressing-lower body Patient retrieves clothing No items: Patient applies/removes LE n/a prosthesis or orthosis: Lower Body Dressing FIM Score 5. Supv./Set-Up ([place] sets out clothes or applies pros./orth.) - Labs CBC & Chem 7: 10/25/18 04:35 11/01/18 08:11 Assessment and Plan I69.353 Right non-dom hemiparesis: Monitor for neuro decline. Continue secondary stroke prevention. Discussed recovery and secondary stroke prevention. Monitor for post-stroke depression and s/s of shoulder-hand syndrome. 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 OT and PT will continue to address mild symptoms and impulsivity. Z73.6 ADL dysfunction: OT will work on improving ability to perform ADLs (including assistive devices) to increase independence and decrease caregiver burden and improve functional transfers and mobility training. R26.2 Difficulty walking: PT will work on gait training and proper use of assistive devices and advance as appropriate to use of stairs and outside ambulation on uneven surfaces. R26.81 Unsteadiness on feet: PT will work on improving static and dynamic sitting and standing balance as well as proper use of assistive devices to decrease risk of falls. R26.89 Abnormality of gait: PT will work to improve safety and efficiency of gait through neuromotor training and gait training along with instruction on proper use of assistive devices. AFO for RLE M62.81 Muscle weakness: PT & OT will work on strengthening exercises to improve functional strength including mixture of closed and open kinetic chain exercises. R53.81 Debility: PT & OT will work on improving overall functional status to improve participation with ADLs, mobility and social involvement. R53.83 Fatigue: PT & OT will work on improving endurance through aerobic exercises and therapeutic activity while monitoring patients tolerance for activity and vital signs as needed. I10 Hypertension: Meds held yesterday - continue to monitor for need to adjust. Will discuss with nursing. Stopped all except lisinopril. Monitor BP and adjust medications as needed for normotension F17.210 Tobacco Addiction: D/C nicotine patch - patient is refusing. Discussed smoking cessation with patient E78.5 Hyperlipidemia: continue statin DVT ppx: on lovenox Pain: Continue physical modalities in therapy and pain medications as needed to achieve functional pain control. Sleep: Monitor and address as needed. Bowel: Monitor and address as needed. Appetite: Monitor and address as needed. Discharge planning: Pending therapy progress and care plan meeting. Will continue discussion with therapy team, SW, patient and family. Restrictions/ Precautions: Falls, aspiration WB status: FWB Functional Hx: ADLs: Independent and working Cognition: Independent Mobility: independent Barriers to Discharge: Decreased mobility and ability to perform self care, right sided weakness, balance deficits, decreased insight Estimated Length of Stay: 7 -10 days Discharge Destination: Home with family
[2018-11-04] MEDS: ZESTRIL PO SCH (12:00)
[2018-11-05 09:05] LABS: Hemoglobin 14.3 gm/dl (11.8-15.2); Mean Corpuscular HGB Conc 33 % (32-34); Mean Corpuscular Volume 96 fl (84-94); Platelet Count 356 K/mm3 (140-440); Red Blood Count 4.49 M/mm3 (3.65-5.03); Red Cell Distribution Width 13.3 % (13.2-15.2)
[2018-11-05 09:40] LABS: BUN/Creatinine Ratio 17; Blood Urea Nitrogen 15 mg/dL (9-20); Calcium 9.2 mg/dL (8.4-10.2); Hemolysis Index 13
[2018-11-05] MEDS: ASPIRIN PO SCH (11:25)
[2018-11-05] MEDS: ZESTRIL PO SCH (11:26)
[2018-11-05] MEDS: LOVENOX SUB-Q SCH (11:26)
[2018-11-06] MEDS ORDERED: ZESTRIL PO SCH (08:00)
[2018-11-06] MEDS: ASPIRIN PO SCH (08:30)
[2018-11-06] MEDS: LOVENOX SUB-Q SCH (08:30)
--- NOTE | 2018-11-06 12:19 | Discharge Summary ---
Providers - Providers Date of Admission: 10/24/18 20:10 Date of discharge: 11/06/18 Attending physician: MAU MADRID III, MD 10/24/18 22:15 Consult to Dietitian/Nutrition [CONS] Routine Physician Instructions: Reason For Exam: Reason for Consult: Diet education Occupational Therapy Evaluate and Treat [CONS] Routine Comment: Reason For Exam: Eval Treat CVA Physical Therapy Evaluation and Treat [CONS] Routine Comment: Reason For Exam: Eval Treat CVA Speech Therapy Evaluation and Treat [CONS] Routine Reason For Exam: Eval Treat CVA 10/24/18 22:21 Consult to Case Management [CONS] Routine Services Needed at Discharge: Home Health Services Notified:: cm notified Primary care physician: [facility] Hospitalization Reason for admission: CVA Condition: Good Hospital course: 63 yo male presented to ED at [facility] on 10/12/2018 after a day of worsening right sided weakness and slurred speech which became acutely worse 1.5 hrs prior to presentation. 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 CTA did not show significant stenosis or occlusion. Hypertension was difficult to control and medications were increased for better control. After he was medically stabilized he was transferred for further rehab. Left hand dominant. Reduced awareness of deficits and slightly impulsive. He progressed really well with his ambulation. Currently he is able to tolerate walking on level surfaces either with no assistive device or only a single-point cane. However on uneven surfaces he required a quad cane. His blood pressures were a little difficult to manage due to medications being held. I have been able to reduce him from the 3 blood pressure medications he was previously on to just lisinopril which seems to be working well for him. Advised him to check his blood pressure daily and record his findings and to share that with his PCP for further medication adjustment. Prognosis and timeline of recovery was discussed with the patient. Secondary stroke prevention was also discussed and medications that are important for this as well as lifestyle changes were reiterated several times as well as on the day of discharge. My understanding is that the patient will be discharging back to home in [place] where he does have assistance available. He will need an [id number] AFO for his right lower extremity to prevent falls and assist with gait. He is starting to have some minor return of his ankle dorsiflexion however this is not yet strong enough to allow him to avoid toe drag and puts him at greater risk for fall. With the AFO on he ambulates quite well. His fine motor control in his right upper extremity is still lacking. He still has issues with balance, right sided hemiparesis and some issues with insight/safety awareness. He should continue to recover well if he continues with secondary stroke prevention and lifestyle modification. Disposition: [id number] TO HOME OR SELFCARE Time spent for discharge: >30mins spent counseling and coordinating care with 18 minutes face to face - Discharge Diagnoses (1) Stroke Status: Acute (2) Hemiplegia and hemiparesis following cerebral infarction affecting right non-dominant side Status: Acute (3) Attention and concentration deficit following cerebral infarction Status: Acute (4) Essential (primary) hypertension Status: Chronic (5) Hyperlipidemia Status: Chronic Qualifiers: Hyperlipidemia type: mixed hyperlipidemia Qualified Code(s): E78.2 - Mixed hyperlipidemia Core Measure Documentation - Palliative Care Palliative Care/ Comfort Measures: Not Applicable - Core Measures Any of the following diagnoses?: stroke - Stroke Discharge Requirements Statin for LDL = or >70 mg/dl on DC: Yes Anticoag for atrial fib/atrial flutter: Not Applicable Antithrombotic for ischemic stroke: Yes Exam - Physical Exam Narrative exam: MUSCULOSKELETAL SPECIALTY EXAM Constitutional: Well developed, well nourished, appropriately groomed, LHD EENT: EOMI. Hearing intact to finger rustle Respiratory: Clear to ascultation bilaterally, no increased work of breathing. Cardiovascular Regular Rate/ Rhythm, no swelling edema or tenderness in all 4 extremities. All 4 extremities warm. GI : + bowel sounds, soft, NTTP, nondistended INTEGUMENTARY Normal in all 4 extremities. Musuloskeletal BUE and BLE normal without defect, crepitus, sublux, effusion, or TTP. RUE and RLE 3 to 4-/5, ADF 3-/5, APF 3/5. Decreased aROM, good pROM, normal tone. R side fine motor control slow to improve but better. LUE and LLE 5/5, good ROM with normal tone. NEURO: Slight Right facial droop, otherwise CN 2-12 grossly intact. Sensation intact in all extremities. No tremor noted. No aphasia or dysarthria. POSTURE and GAIT: Slight lean to right, ambulating with quad cane. Balance reasonable but decreased with uneven surfaces PSYCH: Alert, orientated x3, affect appears normal. Insight appears slightly impaired, with some increased impulsivity and decreased safety awareness. - Constitutional Vitals: Temp Pulse Resp BP Pulse Ox 36.9 C 70 18 135/86 99 11/05/18 21:12 11/06/18 08:38 11/05/18 21:12 11/06/18 08:36 11/06/18 08:38 - Allied Health Allied health notes reviewed: nursing, PT, OT Plan Activity: advance as tolerated, no driving until cleared by PCP, fall precautions Weight Bearing Status: Full Weight Bearing Diet: other (Cardiac) Special Instructions: record daily BP diary, follow up in rehab Durable Medical Equipment Needed Upon Discharge: Cane-Quad Follow up with: PRIMARY CARE,MD [Primary Care Provider] - 7 Days Prescriptions: AtorvaSTATin [Lipitor] 40 mg PO QHS #30 tablet Aspirin [Aspirin TAB] 325 mg PO QDAY #30 tablet Lisinopril [Zestril TAB] 5 mg PO QDAY #30 tablet Other Discharge Orders: Occupational Therapy (Amb) Location: None Selected Physicial Therapy (Amb) Location: None Selected
[2018-11-06 12:30] VITALS: BP 139/87
== END 2018-11-06 13:00 | disposition home or self-care (01) | DRG 65 ==
LOC: UNDOADMIN 17:11 → 3A 17:11 → 3B 20:10
PROVIDERS: ADMIT Physical Medicine & Rehabilitation; ATTEND Physical Medicine & Rehabilitation
DX: I63.9 Cerebral infarction, unspecified (principal); G81.91 Hemiplegia, unspecified affecting right dominant side; I10 Essential (primary) hypertension; E78.2 Mixed hyperlipidemia; R47.81 Slurred speech; F17.210 Nicotine dependence, cigarettes, uncomplicated; R26.89 Other abnormalities of gait and mobility; Z82.49 Family history of ischemic heart disease and other diseases of the circulatory system
CPT/HCPCS: 36415; 80048; 82962; 85025; 85027; 87116; 99406; G0378; A9270-GY; J1650